=== PATIENT | male | born 1950 | race Caucasian/White ===

== ENCOUNTER 2019-07-02 05:31 | Inpatient (IN) ==
--- NOTE | 2019-06-25 14:36 | History & Physical Report ---
Date of Service June 25, 2019 Assessment & Plan (1) Neurogenic claudication due to lumbar spinal stenosis: At this time the patient is presenting with a marked decline in neurologic function. We are recommending urgent multilevel lumbar decompression and fusion L2 to the sacrum. Hopefully this will halt the progression of neural deficits and with time he may regain some strength and improvement of his pain and ambulation. This will hopefully avoid long-term permanent neurologic sequelae. Risk benefits pros cons alternatives outlined in detail. Present on Admission?: Yes History of Present Illness Chief Complaint: Back with bilateral leg pain and weakness This is a 69-year-old male well-known to us that presents with marked decline in status. He has had worsening back and bilateral leg pain exacerbated by standing ambulation. He now requires a wheelchair. He is noted marked weakness over the past several weeks. He has undergone a course of epidural injections over the past several years with little to no relief. Allergies Allergy/AdvReac Type Severity Reaction Status Date / Time No Known Allergies Allergy Verified 06/25/19 11:23 Home Medications Home Medications Medication Instructions Recorded Confirmed Type amlodipine 10 mg PO UD PRN 06/25/19 06/25/19 History apixaban [Eliquis] 5 mg PO BID 06/25/19 06/25/19 History ergocalciferol (vitamin D2) 1,250 mcg PO WK 06/25/19 06/25/19 History [Vitamin D2] gabapentin 600 mg PO TID 06/25/19 06/25/19 History omeprazole 20 mg PO QAM 06/25/19 06/25/19 History oxycodone 5 - 10 mg PO Q6H PRN 06/25/19 06/25/19 History Past Med/Surg History Medical History (Updated 06/25/19 @ 14:35 by Robert Nascimento DO) Deep vein thrombosis LAST YEAR DVT IN LEG (REASON FOR ELIQUIS) ? 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 He is able to stand but is markedly stooped. He is unable to take a few steps before he must sit down secondary to pain and quad deficits. He exhibits sensory deficits to light touch bilateral extremities. He has 4/5 bilateral quadriceps and dorsiflexion on the left. Heart is regular rate and rhythm Lungs clear to auscultation Results & Data Diagnostic Findings MRI lumbar spine demonstrates severe multilevel spondylosis with marked neuroforaminal disease most impressive at L4-5 and L5-S1. Axillary views demonstrate moderate to severe central lateral recess stenosis L2 1 2 and L2-3 with far lateral disc herniation on the right creating worsening neuroforaminal stenosis. L3-4 has markedly severe spinal stenosis.
--- NOTE | 2019-06-29 10:18 | Anesthesiology Consultation ---
Date of Service June 29, 2019 Assessment & Plan (1) Encounter for pre-operative examination: Chart Review Chart Review: Acceptable Risk for Surgery (pending awaiting studies) and Patient NOT seen in Pre Admission Testing Consults Requested none Additional Notes Travel assessment/history reviewed - low risk at this time - will be reviewed the morning of surgery. pt still requires preoperative EKG and type and screen before final clearance. History Surgery Operation Date: 07/02/19 07:00 Proposed Procedures p T12-S1 Decompression and Fusion, Spinal Cord Monitoring - Robert Nascimento DO Height/Weight Height: 6 ft 1 in Weight: 146.964 kg Allergies Allergy/AdvReac Type Severity Reaction Status Date / Time No Known Allergies Allergy Verified 06/25/19 11:23 Medications Home Medications Medication Instructions Recorded Confirmed Last Taken amlodipine 10 mg PO UD PRN 06/25/19 06/25/19 Unknown apixaban [Eliquis] 5 mg PO BID 06/25/19 06/25/19 Unknown ergocalciferol (vitamin D2) 1,250 mcg PO WK 06/25/19 06/25/19 Unknown [Vitamin D2] gabapentin 600 mg PO TID 06/25/19 06/25/19 Unknown omeprazole 20 mg PO QAM 06/25/19 06/25/19 Unknown oxycodone 5 - 10 mg PO Q6H PRN 06/25/19 06/25/19 Unknown Past Medical History Medical History Deep vein thrombosis LAST YEAR DVT IN LEG (REASON FOR ELIQUIS) ? REASON Degenerative disc disease GERD (gastroesophageal reflux disease) Hearing deficit Hypertension Osteoarthritis Sleep apnea CPAP DEVICE Past Family History Family History Mother Family history of diabetes mellitus Past Surgical History Surgical History History of ankle surgery RT (X 2) *MUST WEAR BRACE ON RT ANKLE WHEN WALKING History of colonoscopy History of tonsillectomy History of tooth extraction Social History Smoking Status: Current every day smoker tobacco type: cigars Smoking cigarettes per day: 3 "SMALL CIGARS DAILY" Do You Dip or Chew Tobacco: No Hx Alcohol Use: No Hx Substance Use: No substance use type: does not use Testing Laboratory Results WBC: 8.8 H/H: 16.3/48.2 PLATELETS: 174 SODIUM: 143 POTASSIUM: 4 CHLORIDE: 111 CO2: 26 BUN: 19 CREATININE: 1 GLUCOSE: 107 PT: 11 PTT: 29 INR: 1.15 UA: Negative Chest X-Ray Date: 06/28/19 Findings: + NAD
[2019-07-02] MEDS ORDERED: GABAPENTIN 300 MG CAP PO SCH (06:00)
[2019-07-02] MEDS ORDERED: CeleBREX 200 MG CAP PO SCH (06:00)
[2019-07-02] MEDS ORDERED: ACETAMINOPHEN 500 MG TAB PO SCH (06:00)
[2019-07-02] MEDS ORDERED: CEFAZOLIN 3000MG 72.5 ML IV SCH (06:00)
[2019-07-02] MEDS ORDERED: LR 15ML/HR IV SCH (06:00)
[2019-07-02] MEDS ORDERED: ALBUMIN HUMAN 5% 12.5 GM/250 ML VIAL IV ONE (06:35)
[2019-07-02] MEDS ORDERED: ROCURONIUM BROMID 50MG/5ML SYR ONE (06:35)
[2019-07-02] MEDS ORDERED: EPINEPHrine INJ 1 MG/ML AMP ONE (06:43)
[2019-07-02] MEDS ORDERED: BUPIVACAINE 0.5 % 5 MG/1 ML MPF 30ML VIAL ONE (06:43)
[2019-07-02] MEDS ORDERED: BACITRACIN INJ 50,000 UNIT VIAL ONE (06:43)
[2019-07-02] MEDS ORDERED: DEXAMETHASONE SOD INJ 4 MG/ML VIAL ONE (06:44)
[2019-07-02] MEDS ORDERED: LIDOCAINE HCL 2% 2 ML VIAL/AMP(20MG/ML) INFIL ONE (06:44)
[2019-07-02] MEDS ORDERED: ONDANSETRON INJ 2 MG/ML 2 ML VIAL ONE (06:44)
[2019-07-02] MEDS ORDERED: NEOSTIGMINE METHYLSULFATE 5 MG/5 ML SYR ONE (06:44)
[2019-07-02] MEDS ORDERED: PROPOFOL IV EMULSION 10 MG/ML 20 ML VIAL IV ONE (06:44)
[2019-07-02] MEDS ORDERED: HYDROmorphone INJ 2 MG/ML SYR/VIAL ONE (06:44)
[2019-07-02] MEDS ORDERED: MIDAZOLAM HCL 1 MG/ML 2ML VIAL ONE (06:44)
[2019-07-02] MEDS ORDERED: GLYCOPYRROLATE 0.2 MG/ML VIAL ONE ×2 (06:44→10:34)
[2019-07-02] MEDS ORDERED: HYDROmorphone INJ 1 MG/ML SYRINGE IV PRN ×2 (06:54→13:26)
[2019-07-02] MEDS ORDERED: ePHEDrine sulfate 50 MG/ML AMP IV PRN (06:54)
[2019-07-02] MEDS ORDERED: ATROPINE SULFATE 0.1 MG/ML 10ML SYR IV PRN (06:54)
[2019-07-02] MEDS ORDERED: ONDANSETRON INJ 2 MG/ML 2 ML VIAL IV PRN ×2 (06:54→13:26)
[2019-07-02] MEDS ORDERED: fentaNYL citrate 100 MCG/2 ML VIAL IV PRN (06:54)
--- NOTE | 2019-07-02 07:13 | History & Physical Bridge Note ---
Date of Service July 02, 2019 History & Physical Bridge Note I have examined the patient, reviewed the History & Physical and in the interval since the performance of the History & Physical I have noted the following changes of clinical significance: no changes noted
[2019-07-02] MEDS ORDERED: ePHEDrine sulfate 50 MG/ML SYR ONE (09:21)
[2019-07-02] MEDS ORDERED: ePHEDrine sulfate 50 MG/ML AMP ONE (09:21)
[2019-07-02] MEDS ORDERED: FLOSEAL HEMOSTATIC MATRIX 10ML TOP ONE (10:31)
--- NOTE | 2019-07-02 10:43 | Operative Report ---
Post Operative Report Pre & Post Diagnosis Operation Date: 07/02/19 07:00 Pre-Op Diagnosis: Spinal Stenosis, Lumbar Region with Neurogenic Claudication Morbid obesity Post-Op Diagnosis: Spinal Stenosis, Lumbar Region with Neurogenic Claudication Morbid obesity I identified the patient and participated in the time-out.: Yes Procedure Operation Date: 07/02/19 07:00 Actual Procedures #1 lumbar decompression with bilateral medial facetectomies and foraminotomies L2-3, L3-4, L4-5 and L5-S1. #2 posterior spinal fusion L2-3, L3-4, L4-5 and L5- S1. #3 placement posterior segmental instrumentation L2-S1. #4 interbody fusion L4-5 per #5 placed a peek cage 12 x 26 mm at L4-5. #6 placement locally harvested morselized autograft in the posterior lateral gutters. #7 placement infuse collagen sponge, master graft in the posterior gutters and ostial amp and interbody space. Surgeon Robert Nascimento, DO Riveter Dora Dial Estimated Blood Loss 700 Findings See Below Patient is 6 feet 1 inches tall weighing over 147 kg with a BMI in excess of 42. The patient's body habitus combined with an EBL of over 700 cc created significant technical difficulty adding 50% increase to the operative time. He also require additional follow-up postoperatively for wound assessment and care. Specimens None Indications This is a 61-year-old male who presents above-mentioned diagnosis after noting marked decline in status and beginnings of weakness affecting lower extremities with a underwent the above-mentioned procedure. Description of Procedure Patient was met with identified informed consent obtained. Patient was then taken to the operative suite underwent intubation placed in a prone position the Boy table on top of the Jonathan frame. All bony prominences well-padded eyes inspected to ensure no external pressure placed upon them. This point the lumbar spine was prepped and draped in a normal sterile fashion. Sharp dissection with the assistance of Bovie cautery was performed down to and exposing the lamina and transverse processes of L2 L3-L4-L5 and the sacral ala bilaterally. From caudal cephalad fashion complete laminectomy L5 L4 L3 and L2 was performed including bilateral medial facetectomies and foraminotomies addressing severe spinal stenosis. Pedicle screws were then placed in L2 L3-L4-L5 and S1 levels bilaterally with assistance of fluoroscopy and appropriate sized alva placed. By way of a trans-foramen approach on the left complete discectomy of L4-5 was performed endplates curetted to subcortical bleeding bone and a 12 x 26 mm peek cage filled with osteo-bone graft tapped in position. The rods were then locked in final position bilaterally. The transverse processes of L2 L3-L4-L5 and sacral ala burred to subcortical bleeding bone. Infuse collagen sponge master graft local autograft was placed in the posterior gutters. 15 round ELEAZAR drain inserted. The incision was then closed with 1 Vicryl in the fascia 2-0 Vicryl subcutaneously and 4 Monocryl for final skin closure. Steri-Strip sterile dressings placed. Patient will continue PACU stable condition. Please note spinal cord monitoring was utilized that the procedure no changes noted. Lastly Dora Dial was present at the entire procedure.the patient positioning complex portions of the surgery and final skin closure. I attest to the content of the Intraoperative Record and any orders documented therein. Any exceptions are noted below.
--- NOTE | 2019-07-02 10:45 | Fluoroscopy Report ---
FL lumbar spine 2-3V CLINICAL HISTORY: Decompression and fusion. COMPARISON STUDY: None. FLUOROSCOPY TIME: 35.9 seconds. FLUOROSCOPIC IMAGES: 5 FINDINGS: These images demonstrate an L4-L5 discectomy with interbody spacer placement. There is a po sterior decompression with bilateral pedicle screw fusion from L2 through S1. Interconnecting rods ar e present. Hardware is intact. There are no unexpected radiopaque foreign bodies. IMPRESSION: Fluoroscopy provided for L4-L5 discectomy and posterior decompression with bilateral ped icle screw fusion from L2 through S1. ACT 112: Negative or not required by law. Electronically signed by: Rebel Montalvo M.D. 07/02/2019 10:44 AM
[2019-07-02] MEDS ORDERED: fentaNYL citrate 100 MCG/2 ML VIAL ONE (11:18)
--- NOTE | 2019-07-02 11:50 | Anesthesiology Progress Note ---
Date of Service July 02, 2019 Anesthesia Post Procedure Vital Signs Vital Signs: Temp Pulse Pulse Resp BP Pulse Ox 07/02/19 11:27 96.8 F L 57 L 15 148/79 H 99 07/02/19 06:12 99.1 F 56 L 20 156/95 H 97 Pain Intensity Lower Back: Pain Intensity: 4 Transfer of Care Handoff Completed per policy Notes Mental Status: alert / awake / arousable and participated in evaluation Patient Amnestic to Procedure: Yes Nausea / Vomiting: adequately controlled Pain: adequately controlled Airway Patency, RR, SpO2: stable & adequate BP & HR: stable & adequate Hydration State: stable & adequate Anesthetic Complications: no major complications apparent and Pt Satisfied with anesthetic care
[2019-07-02] MEDS ORDERED: LORazepam 0.5 MG TAB PO PRN (13:26)
[2019-07-02] MEDS ORDERED: HYDROmorphone INJ 0.5 MG/0.5 ML SYR IV PRN (13:26)
[2019-07-02] MEDS ORDERED: TRAMADOL HCL 50 MG TABLET PO PRN (13:26)
[2019-07-02] MEDS ORDERED: NALOXONE HCL 0.4 MG/1 ML VIAL/CARP IV PRN (13:26)
[2019-07-02] MEDS ORDERED: SOD PHOSPHATE/SOD BIPHOSPHATE ENEMA 132 ML BTL PR PRN (13:26)
[2019-07-02] MEDS ORDERED: LORazepam 0.5 MG/1 ML VIAL IV PRN (13:26)
[2019-07-02] MEDS ORDERED: PROMETHAZINE HCL 12.5 MG in SODIUM CHLORIDE 0.9% 50 ML IV PRN (13:26)
[2019-07-02] MEDS ORDERED: METOCLOPRAMIDE HCL INJ 5 MG/ML 2 ML VIAL IV PRN (13:26)
[2019-07-02] MEDS ORDERED: MAGNESIUM HYDROXIDE SUSP 30 ML UDC PO PRN (13:26)
[2019-07-02] MEDS ORDERED: FAMOTIDINE 20 MG TAB PO PRN (13:26)
[2019-07-02] MEDS ORDERED: ALUMINUM/MAGNESIUM SUSP 30 ML UDC PO PRN (13:26)
[2019-07-02] MEDS ORDERED: DO NOT ADMINISTER PNEUMOCOCCAL VACCINE PRN (13:26)
[2019-07-02] MEDS ORDERED: AMLODIPINE BESYLATE 5 MG TAB PO PRN ×2 (13:26→14:19)
[2019-07-02] MEDS ORDERED: ONDANSETRON 4 MG OD TAB PO PRN (13:26)
[2019-07-02] MEDS ORDERED: DO NOT ADMINISTER FLU VACCINE PRN (13:26)
[2019-07-02] MEDS ORDERED: ACETAMINOPHEN 500 MG TAB PO PRN (13:26)
[2019-07-02] MEDS ORDERED: bisacodyL 10 MG SUPP PR PRN (13:26)
[2019-07-02] MEDS ORDERED: ACETAMINOPHEN 1,000 MG/100 ML VIAL IV PRN (13:26)
[2019-07-02] MEDS ORDERED: PANTOprazole 40 MG TAB PO PRN (13:39)
[2019-07-02] MEDS: KETOROLAC TROMETHAMINE 15 MG/ML VIAL IV SCH ×2 (14:20→20:27)
[2019-07-02] MEDS: GABAPENTIN 600 MG TAB PO SCH ×2 (14:20→20:26)
--- NOTE | 2019-07-02 14:26 | Consultation ---
Date of Consultation July 02, 2019 Assessment & Plan (1) Neurogenic claudication due to lumbar spinal stenosis: status post spinal surgery Operation Date: 07/02/19 07:00 POD #0 Actual Procedures #1 lumbar decompression with bilateral medial facetectomies and foraminotomies L2-3, L3-4, L4-5 and L5-S1. #2 posterior spinal fusion L2-3, L3-4, L4-5 and L5- S1. #3 placement posterior segmental instrumentation L2-S1. #4 interbody fusion L4-5 per #5 placed a peek cage 12 x 26 mm at L4-5. #6 placement locally harvested morselized autograft in the posterior lateral gutters. #7 placement infuse collagen sponge, master graft in the posterior gutters and ostial amp and interbody space. He tolerated procedure well. EBL 700 mL; ELEAZAR drain: 180 mL Pain/wound management per Ortho Activity and therapy as directed by Ortho Encourage incentive spirometry, wean oxygen as able Patient with history of DVT on Eliquis as outpatient, resume per Dr. Nascimento when hemostasis achieved Monitor H&H (2) Deep vein thrombosis: History of bilateral extremity DVT, most recently left lower extremity DVT 1 year ago Eliquis as outpatient Resume per orthopedics (3) Hypertension: Blood pressure stable postoperatively, 146/65 On amlodipine as needed as outpatient States he takes amlodipine when SBP greater than 150, monitor blood pressure daily Continue amlodipine, monitor (4) Sleep apnea: obstructive sleep apnea with dependence on CPAP CPAP at HS (5) Morbid obesity with BMI of 40.0-44.9, adult: BMI 42.9 encourage lifestyle modifications (6) GERD (gastroesophageal reflux disease): continue PPI Disposition: per primary Follow up: PCP upon discharge Patient was seen and examined in collaboration with Dr. Davis, please see addendum Thank you for this consultation. We will follow the patient with you during their hospital stay. You can reach a member of the [facility] Hospitalist Team 06/09 via pager @ [phone]. Starting 07/03/2019 pt will be followed by my colleague Dr. Romo Supervising Physician Co-Signing Physician Notes I, Dr. Sanjay Davis, have seen and examined the patient Nick Lopez with physician medical assistant instructor and would like to comment that on Physical Exam General: speaks comfortably and in full sentences Heart: regular rate Lung: clear to auscultation bilaterally, no wheezing Abdomen: soft, nontender, positive bowel sounds Back: presence of ELEAZAR drain with blood Extremities: legs in SCDs ASSESSMENT AND PLAN -hospitalist medicine consult requested by Dr. Nascimento -Patient with Pre-Op Diagnosis of Spinal Stenosis, Lumbar Region with Neurogenic Claudication and Obesity -status post spine surgery by Dr. Nascimento on 07/02/2019. (#1 lumbar decompression with bilateral medial facetectomies and foraminotomies L2-3, L3-4, L4-5 and L5-S1. #2 posterior spinal fusion L2-3, L3-4, L4-5 and L5- S1. #3 placement posterior segmental instrumentation L2-S1. #4 interbody fusion L4-5 per #5 placed a peek cage 12 x 26 mm at L4-5. #6 placement locally harvested morselized autograft in the posterior lateral gutters. #7 placement infuse collagen sponge, master graft in the posterior gutters and ostial amp and interbody space.) -monitor for acute blood loss anemia (estimated blood loss of 700 cc in the operating oom) -management of wound care, patients activities as per orthopedics -review of patients outpatient medications that she is on apixaban (because of history of DVTs, last taken on 06/28/2019) and this is being held at this time. will have ultrasound of lower extremities to rule out new or chronic DVT to determine the urgency fo resuming the apixaban or not. Hold the SCDs for now -Hypertension on amlodipine at home, may continue amlodipine -continue CPAP at night for obstructive sleep apnea with dependence on CPAP qhs -agree with other assessment and plans as per physician medical assistant instructor -My colleague will be taking over the care of the patient as consult service hospitalist starting on 07/03/2019 History of Present Illness Requesting Physician: Dr. Nascimento Reason for Consultation: Postop medical management. Attending Physician: Robert Nascimento DO History of Present Illness This is a 69-year-old male with significant PMH of bilateral lower extremity DVTs anticoagulated on Eliquis, HTN, CURTIS on CPAP, GERD, OA, hard of hearing who underwent elective lumbar procedure today secondary to lumbar spinal stenosis neurogenic claudication. He underwent L2-S1 lumbar decompression fusion by Dr. Nascimento. Estimated blood loss totaled 700 mL's. He tolerated procedure well. He offers no postoperative complaints. He does find it hard to maintain a comfortable position. Complains of mild incisional pain. He denies any lower extremity pain, numbness or tingling. He denies fever, chills, sweats, lightheadedness, dizziness, chest pain, shortness of breath, cough, nausea, vomiting, abdominal pain. Prior to surgery he denied any difficulty with urination or moving his bowels. Further denied any melena, hematochezia or hematuria. Currently he is requesting his lunch. He does have hx of HTN, this is controlled with as needed amlodipine. He states he takes it when his blood pressure is greater than 150. He last took it 1 week ago. He does have history of bilateral lower extremity DVTs. Appears to have been exacerbated by prior surgeries. He has been since anticoagulated on Eliquis. His last dose was 06/27. He does have history of sleep apnea in which he is compliant with his CPAP. Allergies Allergy/AdvReac Type Severity Reaction Status Date / Time No Known Allergies Allergy Verified 07/02/19 06:22 Home Medications Home Medications Medication Instructions Recorded Confirmed Type amlodipine 10 mg PO UD PRN 06/25/19 07/02/19 History apixaban [Eliquis] 5 mg PO BID 06/25/19 07/02/19 History ergocalciferol (vitamin D2) 1,250 mcg PO WK 06/25/19 07/02/19 History [Vitamin D2] gabapentin 600 mg PO TID 06/25/19 07/02/19 History omeprazole 20 mg PO QAM PRN 06/25/19 07/02/19 History oxycodone 5 - 10 mg PO Q6H PRN 06/25/19 07/02/19 History Patient History Medical History Deep vein thrombosis LAST YEAR DVT IN LEG (REASON FOR ELIQUIS) ? 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 Beliefs That Will Affect Care: None Current Living Situation: Family Feels Safe at Home: Yes Safety Concerns: Feels Safe At This Time Smoking Status: Current every day smoker Tobacco Type: cigars ; Cigarettes Per Day: 3 "SMALL CIGARS DAILY" ; Do You Dip or Chew Tobacco: No ; Second Hand Exposure: No ; Tobacco Cessation Education Requested by Patient: No Hx Alcohol Use: No Hx Substance Use: No Review of Systems Review of Systems: All systems reviewed & are unremarkable except as noted in HPI & below Physical Exam Physical Exam: Constitutional: WD/WN, morbidly obese, male, vitals as above, NAD, lying in bed, pleasant, conversing easily Head: Normocephalic, Atraumatic Eyes: PERRL, conjunctivae normal, anicteric sclerae ENMT: external ear and nose normal, oropharynx normal Neck: trachea midline, no thyromegaly normal visual inspection Respiratory: normal respiratory effort, lungs clear to auscultation, no wheeze, rales, rhonchi. Normal insp/exp effort, no accessory muscle use Cardiovascular: RRR, no murmur, bilateral lower extremity lymphedema Vessels: no JVD or carotid bruit Chest: normal inspection of chest Abdomen: Protuberant abdomen, normal bowel sounds, soft, nontender, no hepatosplenomegaly Musculoskeletal: no cyanosis or clubbing, moves all extremities AROM x4. Skin: no rashes, warm and dry normal turgor Neurologic: PERRL, EOMI, accommodation nl, no face palsy, no dysarthria CN's II-XI intact bilaterally and moves all extremities Psychiatric: A+Ox3, euthymic affect Lymphatic: no cervical or axillary lymphadenopathy : Positive Barrios catheter in place, draining yellow urine. Results & Data ([facility]) Vital Signs (Past 12 Hours) Vital Signs Temp Pulse Pulse Resp BP Pulse Ox 07/02/19 13:19 36.8 C 56 L 18 146/65 H 97 07/02/19 12:50 36.8 C 40 L 16 170/84 H 99 07/02/19 12:35 36.5 C 46 L 14 154/76 H 98 07/02/19 12:25 36.5 C 45 L 14 155/81 H 97 07/02/19 12:15 36.5 C 48 L 12 144/78 H 99 07/02/19 12:05 36.5 C 45 L 12 136/68 99 07/02/19 11:55 36.5 C 48 L 16 153/71 H 100 07/02/19 11:45 46 L 10 L 151/70 H 100 07/02/19 11:35 53 L 8 L 155/84 H 100 07/02/19 11:27 36.0 C L 57 L 15 148/79 H 99 07/02/19 06:12 37.3 C 56 L 20 156/95 H 97 Laboratory Results Preoperative lab work on 06/28/2019 CBC: H&H 16.3 and 48.2, WBC 8.8, platelet 174 BMP: Sodium 143, K4.0, chloride 111, CO2 26, BUN 19, creatinine 1.0, glucose 107 Diagnostic Findings Preoperative chest x-ray revealed no acute cardiopulmonary abnormality Lumbar Spine Xray: Fluoroscopy provided for L4-L5 discectomy and posterior decompression with bilateral pedicle screw fusion from L2 through S1. Medications Administered Gabapentin (Neurontin) 600 mg PO TID MARINA Stop: 08/01/19 13:59 Last Admin: 07/02/19 14:20 Dose: 600 mg Documented by: [id number] Ketorolac Tromethamine (Toradol) 15 mg IV Q6H MARINA Stop: 07/03/19 08:01 Last Admin: 07/02/19 14:20 Dose: 15 mg Documented by: [id number] Discontinued Medications Acetaminophen (Tylenol) 1,000 mg PO PREOP MARINA Stop: 07/02/19 18:00 Last Admin: 07/02/19 06:57 Dose: 1,000 mg Documented by: [id number] Bacitracin (Bacitracin) Confirm Administered Dose 50,000 units .ROUTE .STK-MED ONE Stop: 07/02/19 06:44 Last Admin: 07/02/19 08:19 Dose: 50,000 units Documented by: [id number] Bupivacaine HCl (Marcaine 0.5% Mpf) Confirm Administered Dose 30 ml .ROUTE .STK- MED ONE Stop: 07/02/19 06:44 Last Admin: 07/02/19 08:20 Dose: 30 ml Documented by: [id number] Celecoxib (Celebrex) 200 mg PO PREOP MARINA Stop: 07/02/19 18:00 Last Admin: 07/02/19 06:57 Dose: 200 mg Documented by: [id number] Epinephrine HCl (Epinephrine) Confirm Administered Dose 1 mg .ROUTE .STK-MED ONE Stop: 07/02/19 06:44 Last Admin: 07/02/19 08:20 Dose: 0.15 mg Documented by: [id number] Gabapentin (Neurontin) 300 mg PO PREOP MARINA Stop: 07/02/19 18:00 Last Admin: 07/02/19 06:57 Dose: 300 mg Documented by: [id number] Cefazolin Sodium (Ancef 3000mg) 72.5 mls @ 130 mls/hr IV PREOP MAIRNA; Protocol Stop: 07/02/19 18:00 Last Infusion: 07/02/19 13:46 Dose: 0 mls/hr Documented by: [id number] Infusion: 07/02/19 13:46 Dose: 0 mls/hr Documented by: [id number] Admin: 07/02/19 08:07 Dose: 130 mls/hr Documented by: [id number] Lactated Ringer's (Lr) 1,000 mls @ 15 mls/hr IV .Q24H MARINA Stop: 07/03/19 05:59 Last Infusion: 07/02/19 07:26 Dose: 0 mls/hr Documented by: [id number] Admin: 07/02/19 07:10 Dose: 15 mls/hr Documented by: [id number] Miscellaneous (Floseal Hemostatic Matrix 10ml) 30 ml TOP ONCE ONE Stop: 07/02/19 10:32 Last Admin: 07/02/19 10:31 Dose: 30 ml Documented by: [id number] ECG Rate (beats per minute): 59 Rhythm: sinus bradycardia Findings: + 1st degree AV block
--- NOTE | 2019-07-02 16:52 | Ultrasound Report ---
ULTRASOUND BILATERAL LOWER EXTREMITY VENOUS CLINICAL HISTORY: Chronic deep venous thrombosis. COMPARISON STUDY: No priors. TECHNIQUE: Real-time, grayscale, and color Doppler sonography of the deep veins of the right and left lower extremity was performed from the inguinal crease to the calf. Compression and augmentation wer e utilized. FINDINGS: Right lower extremity: The common femoral vein is patent and normally compressible. The proximal and mid portions of the superficial femoral vein and popliteal vein are incompletely compressible, likely resenting chronic deep venous thrombosis. The calf vessels are not well visualized. The greater saph enous vein and the profunda femoris vein at the junction with the femoral vein are clear. Left lower extremity: The superficial femoral vein and popliteal vein are incompletely compressible c onsistent with nonocclusive and likely chronic deep venous thrombosis. There is near complete occlusi on of the mid to distal superficial femoral vein and the popliteal vein. The calf vessels are not wel l visualized. The common femoral vein is patent and normally compressible. The greater saphenous vein and the profunda femoris vein at the junction with the common femoral vein are clear. IMPRESSION: There is nonocclusive and chronic appearing deep venous thrombosis identified in both leg s as detailed above. ACT 112: Negative or not required by law. Electronically signed by: Papo Ashford M.D. 07/02/2019 4:50 PM
--- NOTE | 2019-07-02 16:54 | Electrocardiogram Report ---
Test Reason : Blood Pressure : / mmHG Vent. Rate : 059 BPM Atrial Rate : 059 BPM P-R Int : 214 ms QRS Dur : 096 ms QT Int : 430 ms P-R-T Axes : 046 -05 051 degrees QTc Int : 425 ms Sinus bradycardia with 1st degree A-V block with Premature atrial complexes Inferior infarct , age undetermined Abnormal ECG No previous ECGs available Confirmed by Chet Singh ([id number]) on 07/02/2019 4:54:07 PM Referred By: Robert Nascimento Confirmed By:Zeferino Singh
[2019-07-02] MEDS: SODIUM CHLORIDE 0.9% 1000ML 1,000 ML IV SCH ×2 (17:05→23:48)
[2019-07-02] MEDS: CEFAZOLIN 2000MG 2,000 MG/15 ML SYR IV SCH ×2 (17:05→23:48)
[2019-07-02] MEDS: DOCUSATE SODIUM/SENNA 50/8.6MG TAB PO SCH (20:27)
[2019-07-03] MEDS: KETOROLAC TROMETHAMINE 15 MG/ML VIAL IV SCH ×2 (02:53→08:41)
[2019-07-03] MEDS: SODIUM CHLORIDE 0.9% 1000ML 1,000 ML IV SCH (05:22)
[2019-07-03] MEDS: POLYETHYLENE (MIRALAX) 17 GM PACK PO SCH ×3 (05:44→17:59)
[2019-07-03 06:11] LABS: Basophils # (auto) 0.01 K/uL (0-0.2); Basophils % (auto) 0.1 %; Eosinophils # (auto) 0.01 K/uL (0-0.5); Eosinophils % (auto) 0.1 %; Immature Granulocytes # (auto) 0.02 K/uL (0.00-0.02); Immature Granulocytes % (auto) 0.2 %; Mean Corpuscular Hemoglobin 32.7 pg (25-34); Mean Corpuscular Hgb Conc 34.3 g/dL (32-36); Mean Corpuscular Volume 95.4 fL (80-100); Mean Platelet Volume 9.6 fL (7.4-10.4); Monocytes % (auto) 8.3 %; Neutrophils # (auto) 9.37 K/uL (1.4-6.5); Neutrophils % (auto) 77.3 %; Platelet Count 156 K/uL (130-400); RDW Coefficient of Variation 13.4 % (11.5-14.5); RDW Standard Deviation 46.7 fL (36.4-46.3); Red Blood Count 3.67 M/uL (4.7-6.1); White Blood Count 12.11 K/uL (4.8-10.8)
[2019-07-03 06:48] LABS: BUN Creatinine Ratio 18.3 (10-20); Calcium 7.7 mg/dl (8.5-10.1); Est GFR (African American) 97.4; Est GFR (Non-African American) 84.1; Potassium 3.7 mmol/L (3.5-5.1)
[2019-07-03] MEDS: GABAPENTIN 600 MG TAB PO SCH ×3 (08:41→21:42)
--- NOTE | 2019-07-03 10:47 | Orthopedic Progress Note ---
Date of Service July 03, 2019 Assessment & Plan (1) Neurogenic claudication due to lumbar spinal stenosis: At this time the patient is progressing appropriately. We will continue with physical therapy hopefully discharge home in the next few days. Present on Admission?: Yes Admission and Anticipated Discharge Date Admission Date: July 02, 2019 Subjective Back pain controlled leg symptoms markedly improved. Physical Exam Physical Exam: On exam he has good strength testing appears comfortable. Results & Data ([facility]) Vital Signs (Past 12 Hours) Vital Signs Temp Pulse Pulse Resp BP Pulse Ox 07/03/19 07:48 36.6 C 50 L 18 144/75 H 97 07/03/19 03:45 36.5 C 53 L 16 153/76 H 99 07/02/19 23:27 36.7 C 57 L 18 151/88 H 99
--- NOTE | 2019-07-03 14:15 | Hospitalist Progress Note ---
Date of Service July 03, 2019 Assessment & Plan (1) Neurogenic claudication due to lumbar spinal stenosis: POD # 1. (2) Hypertension: BP 121/70. Uses amlodipine PRN at home. Follow. (3) Sleep apnea: Encouraged to use CPAP. (4) Deep vein thrombosis: History of DVT, last occurrence about 1 year ago. Venous duplex 07/01 showed bilateral chronic appearing thrombi. Resume apixaban postoperatively when OK from surgical perspective. (5) GERD (gastroesophageal reflux disease): Continue PPI PRN. (6) Morbid obesity with BMI of 40.0-44.9, adult: AHA diet. (7) Encounter for consultation: Thank you for this consultation. We will follow the patient with you during their hospital stay. My cell # is [phone]. You can reach a member of the [facility] Medicine Team 06/09 via pager @ [phone]. Admission and Anticipated Discharge Date Admission Date: July 02, 2019 Subjective Recheck for medical management. Patient seen in their room around 1410. Doing well postoperatively. No fever. No chest pain, cough, SOB, nausea, vomiting. Passing flatus, no stool Voiding without difficulty. Pain well-controlled. Ambulating with PT. Physical Exam Constitutional: no acute distress ENMT: Ears: + hearing impairment Respiratory: no respiratory distress Auscultation: lungs clear to auscultation bilaterally Cardiovascular: Rate/Rhythm: regular rate and regular rhythm Heart Sounds: no gallop Vessels: no JVD Extremities: + edema (trace pretibial edema); no calf tenderness Gastrointestinal (Abdomen): normal bowel sounds, soft, nontender, no hepatosplenomegaly Musculoskeletal: Extremities: + extremities abnormal to inspection (chronic venous insufficiency lower extremities; TEDS applied) Skin: no rashes, warm and dry Psychiatric: Orientation: alert and oriented x 3 Results & Data Results & Data ([facility]) Vital Signs (Past 12 Hours) Vital Signs Temp Pulse Pulse Resp BP Pulse Ox 07/03/19 11:19 36.6 C 60 18 121/70 97 07/03/19 07:48 36.6 C 50 L 18 144/75 H 97 07/03/19 03:45 36.5 C 53 L 16 153/76 H 99 Laboratory Results Laboratory Results - last 24 hr 07/02/19 07/03/19 07/03/19 05:57 05:45 05:45 WBC 12.11 H RBC 3.67 L Hgb 12.0 L Hct 35.0 L MCV 95.4 MCH 32.7 MCHC 34.3 RDW Std Deviation 46.7 H RDW Coeff of Jsesie 13.4 Plt Count 156 MPV 9.6 Immature Gran % (Auto) 0.2 Neut % (Auto) 77.3 Lymph % (Auto) 14.0 [place] % (Auto) 8.3 Eos % (Auto) 0.1 Baso % (Auto) 0.1 Immature Gran # (Auto) 0.02 Neut # (Auto) 9.37 H Lymph # (Auto) 1.70 [place] # (Auto) 1.00 H Eos # (Auto) 0.01 Baso # (Auto) 0.01 Sodium 142 Potassium 3.7 Chloride 110 H Carbon Dioxide 25 Anion Gap 7.0 BUN 17 Creatinine 0.93 Est Cr Clr Drug Dosing 115.0 Est GFR ( Amer) 97.4 Est GFR (Non-Af Amer) 84.1 BUN/Creatinine Ratio 18.3 Glucose 123 H Calcium 7.7 L Crossmatch See Detail
[2019-07-03] MEDS: DOCUSATE SODIUM/SENNA 50/8.6MG TAB PO SCH (21:42)
[2019-07-04] MEDS: POLYETHYLENE (MIRALAX) 17 GM PACK PO SCH ×2 (01:00→06:09)
[2019-07-04] MEDS: OXYCODONE HCL IR 5 MG TAB (IMMEDIATE RELEASE) PO PRN ×4 (03:51→20:09)
[2019-07-04] MEDS: GABAPENTIN 600 MG TAB PO SCH ×3 (08:00→20:08)
--- NOTE | 2019-07-04 10:12 | Orthopedic Progress Note ---
Date of Service July 04, 2019 Assessment & Plan (1) Neurogenic claudication due to lumbar spinal stenosis: This time we will continue physical therapy monitor ELEAZAR output hopefully discharge home tomorrow. Present on Admission?: Yes Admission and Anticipated Discharge Date Admission Date: July 02, 2019 Subjective Back pain is controlled leg symptoms markedly improved. Physical Exam Physical Exam: Patient is good strength testing was comfortable. Results & Data ([facility]) Vital Signs (Past 12 Hours) Vital Signs Temp Pulse Pulse Resp BP Pulse Ox 07/04/19 07:12 36.7 C 60 18 165/85 H 98 07/03/19 23:44 36.9 C 61 16 145/72 H 99
--- NOTE | 2019-07-04 12:27 | Hospitalist Progress Note ---
Date of Service July 04, 2019 Assessment & Plan (1) Postoperative state: POD#2, doing well, pain controlled. PT/OT per Ortho DVT prophy per Ortho (2) Neurogenic claudication due to lumbar spinal stenosis: s/p lumbar surgery (3) Hypertension: amlodipine PRN per home regimen. (4) Sleep apnea: CPAP qHS (5) Deep vein thrombosis: History of DVT, last occurrence about 1 year ago. Venous duplex 07/01 showed bilateral chronic appearing thrombi. Resume apixaban postoperatively when OK from surgical perspective. (6) GERD (gastroesophageal reflux disease): Continue PPI PRN. (7) Morbid obesity with BMI of 40.0-44.9, adult: (8) DVT prophylaxis: SCDs, transition to apixaban when cleared by spine surgeon Full Code Dispo-poss DC home in am . DO Kyle [facility] Hospitalist Admission and Anticipated Discharge Date Admission Date: July 02, 2019 Subjective doing well pain is well managed tolerating PO Review of Systems Review of Systems: All systems reviewed & are unremarkable except as noted in Subjective Physical Exam Physical Exam: CONSTITUTIONAL: WNWD, vitals as above, generally well- appearing EYES: normal conjunctivae, no scleral icterus ENT: external ear and nose normal, MMM RESPIRATORY: clear to auscultation bilaterally, no crackles, rales or wheezes, normal respiratory effort CARDIOVASCULAR: regular rate and rhythm, S1 and 2 heard without murmurs, gallops or rubs, no JVD, no peripheral edema GASTROINTESTINAL: normal bowel sounds, soft, nontender, nondistended MUSCULOSKELETAL: strength 5/5 throughout, head is normocephalic and atraumatic, neck supple, normal palpation of chest wall without tenderness SKIN: warm and dry NEUROLOGIC: CN 2-12 grossly intact, no sensory deficit, normal cognition, normal speech, no tremor, no gross focal deficits. PSYCHIATRIC: alert cooperative and oriented to person, place and time. Results & Data Results & Data ([facility]) Vital Signs (Past 12 Hours) Vital Signs Temp Pulse Resp BP Pulse Ox 07/04/19 07:12 36.7 C 60 18 165/85 H 98 Medications Administered Current Inpatient Medications Acetaminophen (Tylenol) 1,000 mg PO Q8H PRN PRN Reason: MILD Pain Scale 1,2,3 & Pre PT Stop: 08/01/19 13:25 Last Admin: 07/02/19 23:49 Dose: 1,000 mg Documented by: Al Hydrox/Mg Hydrox/Simethicone (Maalox) 30 ml PO Q6H PRN PRN Reason: Dyspepsia Stop: 08/01/19 13:25 Amlodipine Besylate (Norvasc) 10 mg PO DAILY PRN PRN Reason: HTN Stop: 08/01/19 13:25 Bisacodyl (Dulcolax) 10 mg MN DAILY PRN PRN Reason: Constipation Stop: 08/01/19 13:25 Diphenhydramine HCl (Benadryl Capsule) 25 mg PO Q6H PRN PRN Reason: Allergic Rhinitis/Insomnia Stop: 08/01/19 13:25 Famotidine (Pepcid) 20 mg PO Q12H PRN PRN Reason: Dyspepsia Stop: 08/01/19 13:25 Gabapentin (Neurontin) 600 mg PO TID MARINA Stop: 08/01/19 13:59 Last Admin: 07/04/19 08:00 Dose: 600 mg Documented by: Hydromorphone HCl (Dilaudid) 0.5 mg IV Q3H PRN PRN Reason: MOD pain (scale 4-6) & Pre PT Stop: 07/16/19 13:25 Hydromorphone HCl (Dilaudid) 1 mg IV Q3H PRN PRN Reason: severe pain (scale 7-10) Stop: 07/16/19 13:25 Hydroxyzine HCl (Vistaril) 25 mg PO Q8H PRN PRN Reason: Anxiety Stop: 08/01/19 13:25 Lorazepam (Ativan) 0.5 mg in 1 mls @ 0.5 mls/min IV Q8H PRN PRN Reason: Sedation/Anxiety Stop: 08/01/19 13:25 Promethazine HCl 12.5 mg/ (Sodium Chloride) 50.5 mls @ 204 mls/hr IV Q6H PRN PRN Reason: Nausea &/or Vomiting Stop: 08/01/19 13:25 Influenza Virus Vaccine Quadrival (Flu Vaccine, Do Not Administer) 1 ea N/A PRN PRN PRN Reason: Notification Stop: 08/01/19 13:25 Lorazepam (Ativan) 0.5 mg PO Q8H PRN PRN Reason: Sedation/Anxiety Stop: 08/01/19 13:25 Magnesium Hydroxide (Milk Of Magnesia) 30 ml PO DAILY PRN PRN Reason: Constipation Stop: 08/01/19 13:25 Metoclopramide HCl (Reglan) 10 mg IV Q6H PRN PRN Reason: Nausea &/or Vomiting Stop: 08/01/19 13:25 Naloxone HCl (Narcan) 0.1 mg IV Q5M PRN; Protocol PRN Reason: Oversedation/Resp Depression Stop: 08/01/19 13:25 Ondansetron HCl (Zofran) 4 mg IV Q6H PRN PRN Reason: Nausea &/or Vomiting Stop: 08/01/19 13:25 Ondansetron HCl (Zofran Odt) 4 mg PO Q6H PRN PRN Reason: Nausea Stop: 08/01/19 13:25 Oxycodone HCl (Roxicodone Immediate Rel) 5 - 10 mg PO Q4H PRN PRN Reason: Moderate-Severe Pain & Pre PT Stop: 07/16/19 13:25 Last Admin: 07/04/19 08:00 Dose: 10 mg Documented by: Pantoprazole Sodium (Protonix) 40 mg PO QAM PRN PRN Reason: Heartburn Stop: 08/01/19 13:38 Pneumococcal Polyvalent Vaccine (Pneumococcal Vacc, Do Not Administer) 1 ea N/A PRN PRN PRN Reason: Notification Stop: 08/01/19 13:25 Senna/Docusate Sodium (Senokot S) 2 tab PO HS MARINA Stop: 08/01/19 20:59 Last Admin: 07/03/19 21:42 Dose: 2 tab Documented by: Sodium Biphosphate/Sodium Phosphate (Fleet Enema) 132 ml MN ONE PRN PRN Reason: Constipation Stop: 08/01/19 13:25 Tramadol HCl (Ultram) 50 - 100 mg PO Q4H PRN PRN Reason: Moderate-Severe Pain & Pre PT Stop: 08/01/19 13:25
[2019-07-04] MEDS: DOCUSATE SODIUM/SENNA 50/8.6MG TAB PO SCH (20:09)
[2019-07-05] MEDS: OXYCODONE HCL IR 5 MG TAB (IMMEDIATE RELEASE) PO PRN ×2 (03:14→11:13)
--- NOTE | 2019-07-05 08:31 | Discharge Summary ---
Date of Service July 05, 2019 Admission HPI Per Admitting Provider This is a 69-year-old male well-known to us that presents with marked decline in status. He has had worsening back and bilateral leg pain exacerbated by standing ambulation. He now requires a wheelchair. He is noted marked weakness over the past several weeks. He has undergone a course of epidural injections over the past several years with little to no relief. Principal Diagnosis Lumbar spinal stenosis with neurogenic claudication Discharge Data Allergies Allergy/AdvReac Type Severity Reaction Status Date / Time No Known Allergies Allergy Verified 07/02/19 06:22 Consultations 07/02/19 13:26 Consult Case Management - Discharge Planning Routine Consult Hospitalist Routine Procedures Performed Operation Date: 07/02/19 07:00 Actual Procedures p L2-S1 Decompression and Fusion, Spinal Cord Monitoring(Not Applicable) - Robert Nascimento DO Ordered Studies 07/02/19 06:35 US - OR guided needle placemen Stat 07/02/19 07:00 FL fluoroscopy <1hr Routine FL lumbar spine 2-3V Routine 07/02/19 15:30 US venous doppler LE BI Routine Hospital Course (1) Neurogenic claudication due to lumbar spinal stenosis: Patient underwent multilevel lumbar decompression fusion tolerated as well as taken the orthopedic floor possibly. Postop day 1 he was up and ambulating progressed to postop day 2 on postop day #3 had good strength testing ELEAZAR drain decreasing appropriately. Pain well controlled. Subsequently discharged home. Discharge orders instructions from the chart for further review. Total Time Total Time Spent Total Time Spent (In Minutes): 20 minutes Discharge Plan Discharge Items Patient Disposition: Home - Self-Care Reason For Visit: Spinal Stenosis, Lumbar Region with Neurogenic Cla Discharge Diagnosis: Lumbar spinal stenosis with neurogenic claudication Activity: As commented below Non-emergency contact: Primary Care Provider Call non-emergency contact if: you have any medication questions Follow-up/Referrals: Natalia Khoury CRNP [Primary Care Provider] - Diet: Regular Addtl Attending Provider Instructions: ACTIVITY RECOMMENDATIONS: SELF CARE INSTRUCTIONS AFTER THORACIC/LUMBAR FUSIONS 1. You may walk to your tolerance. It is good exercise for your legs and back. Expect some back and intermittent leg aches and pains. 2. You may perform "counter-top" level activities (make a sandwich, warren with a project, etc.). 3. No bending or lifting of more than 10 pounds or back twisting of any nature (roll like a log when turning in bed). 4. You may ride in a car for 20-30 minutes at a time. No driving until after your first visit with your doctor. 5. Frequent changes of position and restricting sitting to 30 minutes at a time will help limit the amount of back spasms and stiffness you may experience. 6. You may discontinue the use of ambulatory aids (cane, crutches, etc.) once your strength and confidence allow. 7. You may fish machine feeder the shower and let water strike your incision when you arrive home at least once daily. Do not take a tub bath, sit in a hot tub or go into a swimming pool until after your first recheck in the office. SPECIAL CARE INSTRUCTIONS: VERY IMPORTANT TO READ AND REVIEW A. Your surgical incision has been closed with a cosmetic suture under the skin that will dissolve in about 6 weeks. In 14 days, you can use a pair of clean scissors and cut the suture that is left outside of the skin at the ends of your incision. 1. The small skin tapes can be removed 7 days after surgery if they have not fallen off by that point. 2. You may keep the wound open to air as much as possible to promote healing after post-op day number 5 unless told otherwise by your doctor. 3. If you think the wound looks like it is becoming infected (redness or worsening drainage) and/or you are experiencing fever, chill or worsening back pain and muscle spasms, contact the office so that we may evaluate you as soon as possible. B. Complications are uncommon, but please contact us if you have any signs or symptoms of: 1. wound infection (fever higher than 102.5 degrees F, redness, separation of wound, drainage, or increasing pain from the incision) 2. blood clots in legs (pain, swelling, redness and warmth in legs) 3. urinary tract infection (fever higher than 102.5 degrees F, burning upon urination or increased frequency of urination) 4. nerve problems (inability to walk on your toes or heels, numbness, loss of bowel or bladder control) 5. any other symptoms that concern you C. Please call the office at if you have any concerns or questions about your operation or recovery. D. No smoking! Smoking drastically decreases the chance of a solid fusion. E. Do not take any anti-inflammatory medications (Indocin, Advil, Motrin, Aspirin, Naprosyn, etc.) as these may inhibit the chance of a solid fusion. Tylenol is okay to take for pain. MANAGING PAIN AFTER SPINAL SURGERY 1. Narcotic medication is intended for short-term use and will be provided for surgical pain. Surgical pain usually lasts for a period of 4-6 weeks. Narcotic medication includes Percocet, Vicodin, Darvocet, Tylenol #3 or Lortab. 2. Longer-term pain is more appropriately treated with non-narcotic medication such as Tylenol ES. 3. Muscle spasm is not appropriately treated with narcotics. Muscle relaxers such as Soma, Flexeril or Skelaxin can be used along with Tylenol ES. 4. Remember that we all live with some "aches and pains". This is not unusual or uncommon after an injury or as we get older. a. Back pain is expected and may include muscle spasms for 4 to 6 weeks after surgery. The pain should gradually improve. If the pain worsens for no apparent reason, please contact the office. b. Intermittent leg pain may also be experienced and should not be concerned about unless it worsens for no apparent reason. If so, please contact the office. 5. We will provide appropriate medication within the normal guidelines of their prescribed use. We will also be very cautious and aware of potential abuse and extended duration of patients' medication needs. a. Pain medications are for your comfort and to assist with sleep and rest so that the tissue can heal. They are not provided in order to return to normal activity and should not be used through the day. To do so or worsening pain at night can result from ongoing tissue damage and development of tolerance to the prescribed medicine. 6. Please allow 2-3 days to process refills. Prescriptions will not be mailed but must be picked up at the office. FOLLOW UP VISIT: Keep your scheduled follow-up appointment. Any questions, please call the office at . Pending Studies at Discharge: No Stand-Alone Forms: My [employer], Smoking Cessation Medications and DC Order Prescriptions: New tramadol 50 mg tablet 50 mg PO Q6H PRN (Reason: pain, moderate) Qty: 20 RF: 0 oxycodone 5 mg tablet 5 mg PO Q6H PRN (Reason: pain, severe) Qty: 20 RF: 0 Continued gabapentin 600 mg Tablet 600 mg PO TID RF: 0 amlodipine 10 mg Tablet 10 mg PO UD PRN (Reason: TAKES IF SBP OVER 150) RF: 0 ergocalciferol (vitamin D2) [Vitamin D2] 1,250 mcg (50,000 unit) Capsule 1,250 mcg PO WK RF: 0 oxycodone 5 mg Tablet 5 - 10 mg PO Q6H PRN (Reason: Pain) RF: 0 omeprazole 20 mg Tablet,Delayed Release (Dr/Ec) 20 mg PO QAM PRN (Reason: reflux) RF: 0 Eliquis 5 mg Tablet 5 mg PO BID RF: 0 Discharge Orders: Discharge Order (Routine); Ordered 07/05/19 Ordered By: Robert Nascimento Admission Data Admit Date/Time: 07/02/19 10:44 Attending Provider: Robert Nascimento Admit Provider: Robert Nascimento Primary Care Provider: Natalia Khoury Other Providers: Sanjay Davis ; Edelmira Mas
[2019-07-05] MEDS: GABAPENTIN 600 MG TAB PO SCH (09:07)
[2019-07-05] MEDS ORDERED: AMLODIPINE BESYLATE 5 MG TAB PO ONE (09:51)
== END 2019-07-05 12:48 | disposition home or self-care (01) | DRG 454 ==
LOC: ASU 05:31 → 3E 10:44